=== PATIENT | female | born 1950 | race Caucasian/White ===

== ENCOUNTER 2017-07-12 11:59 | Emergency (ER) | payer OTHER ==
[~2017-07-12] VITALS: Ht 160 cm; Wt 70.3 kg
[2017-07-12 12:25] VITALS: Ht 160 cm; Wt 70.3 kg
[2017-07-12 15:21] LABS: BASOPHIL % 0.3 % (0-2); PLATELET COUNT 254 x10^3mcL (130-400); RED CELL DISTRIBUTION WIDTH 16.7 % (11.5-14.5)
[2017-07-12 15:30] LABS: BILIRUBIN TOTAL 0.5 mg/dL (0.20-1.00); CALCIUM 8.3 mg/dL (8.5-10.1); CARBON DIOXIDE 29.7 mmol/L (21-32); POTASSIUM SERUM 3.5 mmol/L (3.5-5.1); TOTAL PROTEIN, SERUM 7.9 g/dL (6.4-8.2)
[2017-07-12 15:33] LABS: ALBUMIN 3.3 g/dL (3.4-5.0); CREATININE SERUM 5.8 mg/dL (0.6-1.0)
[2017-07-12 16:50] VITALS: BP 159/75
== END 2017-07-12 16:50 | disposition home or self-care (01) ==
LOC: ED 11:59
PROVIDERS: Emergency Medicine
DX: B34.9 Viral infection, unspecified (principal); E11.22 Type 2 diabetes mellitus with diabetic chronic kidney disease; I12.9 Hypertensive chronic kidney disease with stage 1 through stage 4 chronic kidney disease, or unspecified chronic kidney disease; N18.9 Chronic kidney disease, unspecified; Z99.2 Dependence on renal dialysis
CPT/HCPCS: 36415; 83880; J7613; J7644; Q0092